=== PATIENT | male | born 1940 | race Caucasian/White ===

== ENCOUNTER 2023-08-22 23:06 | Inpatient (IN) | payer OTHER, SELFPAY ==
[2023-08-22 20:24] VITALS: BP 182/87
[2023-08-22 20:28] VITALS: BP 182/87
[2023-08-22 20:39] LABS: % Basophils 0.7 % (0-2); % Eosinophils 2.6 % (0-6); % Immature Granulocytes 0.4 % (0-0.5); % Lymphocytes 10.2 % (20.5-51.1); % Monocytes 5.9 % (1.7-9.3); % Neutrophils 80.2 % (42.2-75.2); Absolute Basophils 0.1 10^3/uL (0-0.2); Absolute Eosinophils 0.2 10^3/uL (0-0.7); Absolute Lymphocytes 0.9 10^3/uL (1.2-3.4); Absolute Monocytes 0.5 10^3/uL (0.1-0.6); Absolute Neutrophils 7.2 10^3/uL (1.4-6.5); Hematocrit 38.3 % (39.0-52.0); Hemoglobin 13.6 g/dL (13.0-18.0); Mean Corp Hgb Conc. 35.5 g/dL (33.0-37.0); Mean Corpuscular Hgb 33.1 pg (27.0-31.0); Mean Corpuscular Volume 93.2 fL (80.0-94.0); Mean Platelet Volume 10.4 fL (7.4-10.4); Nucleated Red Blood Cells % 0 % (-); Platelet Count 189 10^3/uL (130-400); Red Blood Cell Count 4.11 10^6/uL (4.70-6.10); Red Cell Dist. Width 12.9 % (11.5-14.5); White Blood Cell Count 8.9 10^3/uL (4.8-10.8)
[2023-08-22 20:51] LABS: Glucose - Point of Care 160 mg/dl (70-99)
[2023-08-22] MEDS: ZOFRAN 4 MG IV (21:00)
[2023-08-22] MEDS: NSS 1000 IV (21:01)
[2023-08-22 21:04] LABS: ALT (SGPT) 23 U/L (0-50); AST (SGOT) 28 U/L (17-59); Albumin 4.5 g/dl (3.5-5.0); Alkaline Phosphatase 129 U/L (38-126); Blood Urea Nitrogen 24 mg/dl (9-20); Calcium 9.1 mg/dl (8.4-10.2); Carbon Dioxide 26 mmol/L (22-30); Chloride 103 mmol/L (98-107); Glucose 156 mg/dl (70-99); Lipase 69 U/L (23-300); Potassium 4.2 mmol/L (3.5-5.1); Sodium 139 mmol/L (135-145); Total Bilirubin 0.5 mg/dl (0.2-1.3); Total Protein 7.4 g/dl (6.3-8.2); eGFR > 60.00
[2023-08-22 21:07] LABS: Alcohol None Detected
--- NOTE | 2023-08-22 21:09 | ED.GENMED ---
History of Present Illness
General
Chief Complaint: Change in Mental Status
Source: patient and significant other
Exam Limitations: altered mental status
Time Seen by Provider: 08/22/23 20:33
Nursing documentation reviewed up to this point in time: agreed with
History of Present Illness
History of Present Illness:
83-year-old male history of parkinsonism accompanied by his significant other apparently onset of confusion with vomiting today, was not feeling great through the day had some fried or Easter's for dinner and then vomited was in the air conditioning
all day, baseline is ambulatory no alcohol has hypertension
No trauma, patient somnolent but follows simple commands he recognizes his significant other he is globally weak moving all extremities
Past History
Past History
ED Past Medical History: CAD, HTN, Hypercholesterolemia and Other (Parkinsons)
ED Past Surgical History: Cholecystectomy
Social History
Tobacco: Non-smoker
Alcohol: None
Drug: None
Personal: Single
Living: with family
Employment: Retired
Review of Systems
Review of Systems
Unable to obtain full review of systems at this time due to: due to acuity
Other source history: other (Significant other)
All Other Systems: Not applicable
Constitutional: Reports fatigue
EENT: Reports no symptoms
Respiratory: Reports no symptoms
Cardiac: Reports no symptoms
ABD/GI: Reports nausea; Denies abdominal pain
Neurological: Reports weakness
Endocrine: Reports no symptoms
Hematologic/Lymphatic: Reports no symptoms
Phy Exam
Physical Exam
Physical Exam:
Physical Exam
General: Chronically ill-appearing male with decreased responsiveness
Neck: Lips are slightly dry no tongue
Heart: s1/s2 regular rate and rhythm, no murmur. equal radial pulses.
Lungs: no acute respiratory distress. clear bilaterally
Abdomen: Nontender
Neuro: Opens eyes to voice follows simple commands moves all extremities
Skin: no rash
Psychiatric: Affect is flat
Extremities: no edema.
Course
Orders/Labs/Results
Orders:
Orders
08/22/23 20:22
EKG [Electrocardiogram (*1)] Urgent
Reason for Study: Tachycardia
EKG- Treatment ONCE
08/22/23 20:33
Acetaminophen Urgent
Comment: ADD ON
Alcohol Urgent
Complete Blood Count/With Diff Urgent
Comprehensive Metabolic Panel Urgent
Lipase Urgent
Salicylate Urgent
Date and Time of Last Dose: ADD ON
Tegretol (Carbamazepine) Urgent
Date and Time of Last Dose: ADD ON
Comment: ADD ON
08/22/23 20:41
CT Head W/o Iv Contrast Urgent
Comment:
Reason For Exam: weakenss vomiting
Rectal Temp- Treatment ONCE
08/22/23 20:43
Add On- LAB Urgent
Tests Added?: tegretol, urine drug screen
08/22/23 20:46
Add On- LAB Urgent
Tests Added?: alcohol
08/22/23 20:57
0.9% Sodium Chloride 1000 ml [Nss] 1,000 ml IV BOLUS
Ondansetron Injectable [Zofran] 4 mg .ROUTE .STK-MED ONE
Ondansetron Injectable [Zofran] 4 mg IV NOW STA
08/22/23 21:15
Urinalysis Reflex To Culture Urgent
Date Specimen was Collected: 08/22/23
Time Specimen was Collected: 20:38
Urine Drug Abuse Screen Urgent
Date Specimen was Collected: 08/22/23
Time Specimen was Collected: 20:38
08/22/23 21:49
Add On- LAB Urgent
Tests Added?: Acetaminophen/salicylate
08/22/23 22:10
ABG [Arterial Blood Gas] Urgent
%Oxygen/Room Air: ra
CR Chest Portable - 1 View Urgent
Comment:
Reason For Exam: stupor
Reason Study Needs to be Portable: Patient Unstable
Abnormal Lab Results
08/22/23 08/22/23
20:33 20:49
RBC 4.11 L 10^6/uL
(4.70-6.10)
Hct 38.3 L %
(39.0-52.0)
MCH 33.1 H pg
(27.0-31.0)
Absolute Neuts (auto) 7.2 H 10^3/uL
(1.4-6.5)
Absolute Lymphs (auto) 0.9 L 10^3/uL
(1.2-3.4)
Neutrophils % 80.2 H %
(42.2-75.2)
Lymphocytes % 10.2 L %
(20.5-51.1)
BUN 24 H mg/dl
(9-20)
Glucose 156 H mg/dl
(70-99)
Alkaline Phosphatase 129 H U/L
(38-126)
Carbamazepine 19.1 H* ug/ml
(4-12)
POC Glucose 160 H mg/dl
(70-99)
08/22/23 20:33
08/22/23 20:33
Vital Signs
Initial and Last Documented VS:
Initial Vital Signs
Pulse Resp Pulse Ox
62 20 97
08/22/23 20:22 08/22/23 20:22 08/22/23 20:22
Last Documented Vital Signs
Temp Pulse Resp BP Pulse Ox
96.1 F L 70 15 182/87 96
08/22/23 20:41 08/22/23 20:45 08/22/23 20:45 08/22/23 20:28 08/22/23 20:30
MDM/Problems Addressed
Differential Diagnosis Includes:
Infection intracerebral hemorrhage seizure electrolyte abnormality toxic metabolic
MDM/Problems Addressed:
Confusion
Chronic conditions affecting care: HTN and Neurological disorder
Acute Exacerbation and/or Progression of Chronic Illness: Neurological disorder
*Radiology
Radiology exam reviewed: preliminary read by ED provider
*Pulse Oximetry
Patient hypoxic: no
*Cushion Spring Assembler Interpretation
Rate: normal
Interpretation: normal
Heart Rate: 78
Rhythm: sinus
*Critical Care Note
Total Time (30-74mins, 75-104mins- exclusive of procedures): 30
Update Note
Update Note:
Update, labs noted rectal temperature noted noted urine noted, CT noted full report noted Tegretol level noted
Up-to-date reviewed, general supportive care with serial Tegretol levels, benzodiazepines for seizures, suggest checking for concomitant salicylate and acetaminophen toxicity
Reevaluation patient still lethargic, but arousable maintaining his airway chest x-ray abg pending
ED Attending Note
-
Portions of this chart may have been created with voice recognition software.� Occasional wrong word or��sound alike� substitutions may have occurred due to the inherent limitations of voice recognition software.
Discharge Plan
Departure
Patient Disposition: Admit
Date of Disposition: 08/22/23
Time of Disposition: 22:15
Admit to: ICU
Presentation/result/management discussed w/ accepting MD/DO: Hospitalist
Patient with high blood pressure during this ER visit?: No
Condition: Fair
Discharge Problem:
AMS (altered mental status)
Prescriptions:
No Action
aspirin 81 MG tablet,delayed release (DR/EC)
81 mg PO NOON
metoprolol tartrate 25 MG tablet
12.5 mg PO BID
atorvastatin [Lipitor] 80 mg Tablet
40 mg PO QPM
tamsulosin [Flomax] 0.4 mg Capsule
0.4 mg PO QPM
carbidopa-levodopa 25-100 mg Tablet
1.5 tab PO TID
cyanocobalamin (vitamin B-12) 100 mcg Tablet
100 mcg PO NOON
carbamazepine 100 mg Tablet Extended Release 12 Hr
100 mg PO TID
therapeutic multivitamin Tablet
1 tab PO NOON
amlodipine 2.5 mg Tablet
2.5 mg PO QPM
omeprazole 40 mg Capsule,Delayed Release(Dr/Ec)
40 mg PO DAILY
calcium carbonate 500 mg calcium (1,250 mg) Tablet
500 mg PO NOON
ferrous sulfate 325 mg (65 mg iron) Tablet
325 mg PO NOON
lisinopril 10 mg Tablet
10 mg PO BID
levothyroxine 100 mcg Tablet
100 mcg PO DAILY
Referrals:
Tonie Evans CRNP [Family Provider] -
Interventions
Interventions:
*Risk Screen - Suicide Last Done: 08/22/23 20:21
*General Assessment Last Done: 08/22/23 20:21
*Neglect/Abuse Screening Last Done: 08/22/23 20:21
*ED COVID-19 Vaccine History Last Done: 08/22/23 20:21
ED- Neurological Assessment Last Done: 08/22/23 20:52
Discharge Date and Time
Print Language: MARSHALLESE
[2023-08-22 21:17] VITALS: BP 177/79
[2023-08-22 21:28] LABS: Urine Albumin Negative (Neg - Trace); Urine Bilirubin Negative (Negative); Urine Character Clear (Clear); Urine Color Yellow; Urine Glucose Negative (Negative); Urine Ketone Negative (Negative); Urine Leukocyte Negative (Negative); Urine Nitrite Negative (Negative); Urine Occult Blood Negative (Negative); Urine Urobilinogen Negative (Neg - 1+)
[2023-08-22 21:44] LABS: Amphetamines Negative (Negative); Barbiturates Negative (Negative); Benzodiazepines Negative (Negative); Buprenorphine Negative (Negative); Cocaine Negative (Negative); Marijuana Negative (Negative); Methadone Negative (Negative); Methamphetamines Negative (Negative); Opiates Negative (Negative); Phencyclidine Negative (Negative); Tricyclic Antidepressants Negative (Negative)
[2023-08-22 21:46] LABS: Tegretol (Carbamazepine) 19.1 ug/ml (4-12)
[2023-08-22 22:00] VITALS: BP 178/92
[2023-08-22 22:25] LABS: Acetaminophen < 10 ug/ml (10-30); Salicylate < 1.0 mg/dl (2.0-20.0)
[2023-08-22 22:46] LABS: B.E. -0.1 mmol/L; HCO3 25.4 mmol/L (21-28); O2 Saturation % 98.7 % (94-98); PCO2 44 mmHg (35-48); PO2 83 mmHg (83-108); pH 7.37 (7.35-7.45)
--- NOTE | 2023-08-22 22:48 | HPS.HSE ---
Family Physician
-
Family Physician: NEWTON Samuel
Chief Complaint
-
Confusion
History of Present Illness
83-year-old man with a history of parkinsonism who had the onset of confusion with vomiting today. He was not feeling great through the day, and had some fried food for dinner, then vomited. He was in the air conditioning all day. Hi baseline is
ambulatory. no alcohol abuse. He has essential hypertension. No report of trauma. At the time of my interview, he was somnolent, but follows simple commands and he recognizes his significant other when she was in the room. in the ED he was
globally weak, but moving all extremities. ED tox screen found high level of tegretol.
Medical History
Past Medical History
Past Medical History: Reports Other
Additional Past Medical History:
CAD,
essential HTN,
Hypercholesterolemia
Parkisons
Cholecystectomy
Former tobacco use
Status post total replacement of right hip
Benign prostatic hyperplasia without lower urinary tract symptoms
TIA (transient ischemic attack)
History of use of hearing aid in both ears
Anemia, unspecified type
History of heart artery stent
Prediabetes
Past Surgical History: Reports Other
Additional Past Surgical History:
See above
Social History
Unable to obtain full social history at this time due to: Acuity
Family History
Family History: Not pertinent
Allergies / Home Medications
Allergies reflects when Allergies were last updated in [facility].
Home Medications with original date entered in [facility]
Allergy/Medication List:
Allergies
Allergy/AdvReac Type Severity Reaction Status Date / Time
No Known Allergies Allergy Verified 08/22/23 21:20
Home Medications
aspirin 81 mg tablet,delayed release 81 mg PO NOON Blood clot prevention/tx 11/11/13
metoprolol tartrate 25 mg tablet 12.5 mg PO BID 09/12/14
carbidopa 25 mg-levodopa 100 mg tablet 1.5 tab PO TID 01/06/22
tamsulosin 0.4 mg capsule (Flomax) 0.4 mg PO QPM 01/06/22
amlodipine 2.5 mg tablet 5 mg PO QPM 11/13/22
carbamazepine 100 mg tablet,extended release,12 hr 100 mg PO TID PRN unknown 11/13/22
cyanocobalamin (vitamin B-12) 100 mcg tablet 100 mcg PO NOON 11/13/22
lisinopril 10 mg tablet 10 mg PO BID 11/13/22
omeprazole 40 mg capsule,delayed release 40 mg PO DAILY 11/13/22
therapeutic multivitamin 1 tab PO NOON 11/13/22
levothyroxine 100 mcg tablet 100 mcg PO DAILY 11/19/22
calcium carbonate-vitamin D3 500 mg (1,250 mg)-50 unit capsule 1 cap PO 1XD 08/22/23
Review of Systems
-
Unable to obtain full review of systems at this time due to: Acuity
Physical Exam
Vital Signs
Vital Signs
Temp Pulse Resp BP Pulse Ox
96.1 F L 73 11 178/92 94
08/22/23 20:41 08/22/23 22:30 08/22/23 22:30 08/22/23 22:00 08/22/23 22:30
Physical Exam
General: Well Developed, Well Nourished and No Apparent Distress
HEENT: Atraumatic, Nose Appears Normal and Ears Appear Normal
Respiratory: Clear
Cardiac: S1/S2 and Regular Rhythm
GI: Soft, Non Tender and Non Distended
Musculoskeletal: No Clubbing, No Cyanosis and No Edema
Skin: Warm and Dry
Neuro: No Awake, Alert or Oriented
Psych: Calm
Laboratory Results
-
08/22/23 20:33
08/22/23 20:33
Laboratory Results
Total Bilirubin 0.5 mg/dl (0.2-1.3) 08/22/23 20:33
AST 28 U/L (17-59) 08/22/23 20:33
ALT 23 U/L (0-50) 08/22/23 20:33
Alkaline Phosphatase 129 U/L (38-126) H 08/22/23 20:33
Lipase 69 U/L (23-300) 08/22/23 20:33
Data Reviewed
-
Lab Data: Labs Reviewed by me
Impression/Plan
-
IMPRESSION:
83 man with depressed mental status found to have high tegretol levels and high BUN/Creat ratio
PLAN:
1. Change of mental status.
First, will hold tegretol, then see how patient responds
Re-eval in am
R/O infection as a source of metabolic encephalopathy
2. Hypothermia - cause not clear, concern for infection
Blood cultures
Urine cultures/UA
3. BUN/Creat > 20.
Iv saline
Recheck in am
4. Parkinson's disease - continue current home meds
VCD for DVTp
Code: Presumed full, recheck in am with family.
[2023-08-22 23:00] VITALS: BP 156/77
[2023-08-23] VITALS (8 sets, daily range): BP systolic 139–159; BP diastolic 54–103; PULSE 82–86; BMI 26.0
[2023-08-23] MEDS: TIGAN 100 MG IM (00:40)
[2023-08-23] MEDS: NSS 1000 IV ×3 (00:41→21:07)
--- NOTE | 2023-08-23 06:04 | PTCARENOTE ---
Pt unable to urinate and states that he feels like he need to urinate. Bladder distended, bladder scanned for 616 mls. NEWTON Cisneros notified, BS/SC orders placed. Pt straight cathed w/ 15F, 750mls of clear yellow urine out. Call florez within reach
and plan of care ongoing.
[2023-08-23] MEDS: SYNTHROID 100 MCG PO (06:19)
[2023-08-23 07:07] LABS: Blood Urea Nitrogen 20 mg/dl (9-20); Calcium 8.4 mg/dl (8.4-10.2); Carbon Dioxide 25 mmol/L (22-30); Chloride 104 mmol/L (98-107); Estimated Creatinine Clearance 69 ml/min; Glucose 111 mg/dl (70-99); Potassium 3.9 mmol/L (3.5-5.1); Sodium 136 mmol/L (135-145); eGFR > 60.00
[2023-08-23 07:11] LABS: Hematocrit 33.3 % (39.0-52.0); Hemoglobin 12.2 g/dL (13.0-18.0); Mean Corp Hgb Conc. 36.6 g/dL (33.0-37.0); Mean Corpuscular Hgb 33.9 pg (27.0-31.0); Mean Corpuscular Volume 92.5 fL (80.0-94.0); Mean Platelet Volume 10.6 fL (7.4-10.4); Platelet Count 187 10^3/uL (130-400); Red Cell Dist. Width 12.7 % (11.5-14.5); White Blood Cell Count 8.2 10^3/uL (4.8-10.8)
[2023-08-23 07:35] LABS: TSH 0.42 uIU/ml (0.47-4.68)
[2023-08-23] MEDS: PROTONIX 40 MG PO (08:31)
[2023-08-23] MEDS: SINEMET 25-100 1.5 TABLET PO ×3 (08:31→21:03)
[2023-08-23] MEDS: OSCAL 500 + D 500 MG PO (08:32)
[2023-08-23 08:33] LABS: COVID-19 Antigen Negative (Negative)
[2023-08-23] MEDS: ZESTRIL 10 MG PO ×2 (08:33→20:15)
[2023-08-23] MEDS: LOPRESSOR 12.5 MG PO ×2 (08:33→20:16)
[2023-08-23] MEDS: VITAMIN B-12 100 MCG PO (11:16)
[2023-08-23] MEDS: ASPIR LOW (ENTERIC COATED) 81 MG PO (11:16)
[2023-08-23] MEDS: THERAGRAN 1 TABLET PO (11:16)
--- NOTE | 2023-08-23 12:09 | CON.NEURO4 ---
Consultation - Neurology 4
-
CONSULTING PHYSICIAN: Josue Albright
REFERRING PHYSICIAN: Hospitalist
DICTATED BY: Josue Albright
DATE/TIME OF REQUEST: 08/23/23
DATE/TIME OF CONSULTATION: 08/23/23
Reason for Consultation: Slurred speech, drowsiness,
History of Present Illness:
Patient is an 83-year-old male with a past no history of Parkinson's disease, trigeminal neuralgia, hypertension, coronary artery disease presented to hospital after noted to have balance problems as well as slurred speech and drowsiness observed by
his .
No recent illnesses or head injuries recently. He had had some fried or esters that his had COVID but did not tolerate these well and had some vomiting afterwards.
Per patient and he does appear improved compared to yesterday. Patient denies any double vision or vision changes with the episode yesterday or currently. No headache. No recent changes in medication carbidopa/levodopa. Patient reports that
he usually takes the carbamazepine usually once a day and sometimes on an as-needed basis. He demonstrates poor memory recall for most of the events yesterday.
Per patient's he has been on carbamazepine 200 mg as needed at least for several months for history of right-sided trigeminal neuralgia. Patient reports that he will get some sharp short lasting stabbing pains on the right side of the lower
face that usually can be provoked by eating. These have not been bothersome or severe in the past several months but occasionally can tell that there is a bit of a sensation there in the right lower part of the face.
Past Medical History: Idiopathic Parkinson's disease, trigeminal neuralgia hypertension, hyperlipidemia, coronary artery disease, BPH, anemia, prediabetes
Surgical History: Coronary stent, cholecystectomy, right hip replaced
Family History: Non-contributory
Social History: Retired diesel lube tech, and lives with his
Review of Symptoms:
Patient denies any fever, headache, chest pain, shortness of breath, GI or symptoms.
Physical Exam:
Elderly man well-appearing well-nourished no signs of distress no head or neck trauma eyes are clear oropharynx is clear no neck masses mildly rigid neck, heart rate regular breathing unlabored abdomen soft nontender no lower extremity edema
Neurologic Examination:
Patient awake and alert and conversant obeys complex commands no evidence of aphasia. Evidence of significant memory impairment is apparent.
Cranial nerves shows mild dysarthria, smile symmetric, tongue midline, pupils equal round reactive light bilaterally, no ptosis, visual alonzo are full, extraocular movements are full
Motor examination shows mild resting tremor bilaterally in the hands, moderate overall parkinsonism, mild rigidity in the arms bilaterally as well as leg
Sensory exam intact to light touch and noxious stimulation to
Reflexes unobtainable throughout
Normal finger-nose testing bilaterally no ataxia
Gait examination deferred
Neuro Imaging: CT head non contrast no acute abnormalities
Impressions
1. Very likely symptoms are attributable to elevated levels of carbamazepine in a patient with pre-existing Parkinson's disease as well has mild cognitive impairment. Patient says he takes this medication sometimes once a day but I have some
doubts as to the accuracy of this and how much she is truly taking the medication given his significant memory impairment
2. History of right-sided trigeminal neuralgia
3. History idiopathic Parkinson's disease on carbidopa/levodopa, possibly associated with orthostasis
4. Memory impairment from Parkinson's disease, at least mild cognitive impairment is present
5. Coronary artery disease
6. Hypertension
7. BPH
Recommendations:
1. Would hold carbamazepine completely for now, would recommend holding for at least 7 days with resumption of dose at 100 mg at night only
2. Would recommend checking a carbamazepine level 1 week after discharge and sending result to his existing neurologist as well as primary care doctor
3. Minimize sedating medications
4. Check orthostatic vital signs
5. Physical therapy occupational therapy mobilization
6. Given finding of significantly elevated carbamazepine level along with the patient's symptoms which are consistent with mild toxicity from the medication I feel it isvery unlikely patient has suffered a stroke and do not recommend brain MRI
imaging
7. Continue home dose Carbidopa/Levodopa
8. Avoid antipsychotics especially Haloperidol as this can produce harm in patients with Parkinson's disease
Discussed patient care with: Patient and his , hospitalist
--- NOTE | 2023-08-23 12:13 | W.PN.HOSP.TC ---
Addendum entered and electronically signed by Renard Perez MD 08/23/23 14:13:
I just spoke to patient Patience and she is concerned about patient's high blood pressure (systolic 140s vs. his normal 110s to 120s). She mentioned cyber security administrator Dr. Hauser usually manages his blood pressure medications. Per 's request, we
agreed to keep patient here overnight and continue monitoring his blood pressure to ensure it comes at least closer to normal prior to discharge.
Original Note:
Today's Communication/Plan
-
Hold Tegretol
Symptoms Improving
PT/OT
Assessment / Plan
Assessment / Plan
Physical Exam
General: Not in acute distress
HEENT: Atraumatic
Respiratory: Clear
Cardiac: S1/S2 and Regular Rhythm
GI: Soft, Non Tender and Non Distended. Positive bowel sounds.
Musculoskeletal: No Cyanosis and No Edema
Skin: Warm and Dry
Neuro: Mild dysarthria. Mild resting tremor. Memory Impairment. neuro exam otherwise grossly intact.
Psych: Calm

83 y/o male with depressed mental status, recent history of slurred speech, and gait imbalance. Vomiting after eating fried food at home.
Presentation with balance problems as well as recent slurred speech and drowsiness, and vomiting after eating fried food
Acute Toxic Metabolic Encephalopathy - IMPROVED
-First, will hold tegretol, then see how patient responds
-Continue to hold carbamazepine; carbamazepine levels are also high
-Patient is doing better
-Neurology consulted, recommendations appreciated: hold carbamazepine completely for now, would recommend holding for at least 7 days with resumption of dose at 100 mg at night only, check a carbamazepine level 1 week after discharge and sending
result to his existing neurologist as well as primary care doctor
-Minimize sedating medications
-No concern for infection at this time but ordered COVID and Flu to be thorough
Hypothermia - RESOLVED - cause not clear, infection unlikely at this time
-Blood cultures
-UA not suggesting UTI
Prerenal Azotemia/Suspected Dehydration especially in the setting of vomiting
-IV fluids were given
-Labs improved
Parkinson's disease
-Continue carbidopa/levodopa
-Avoid antipsychotics especially Haloperidol as this can produce harm in patients with Parkinson's disease
Mild Cognitive Impairment
Right-sided trigeminal neuralgia
-Patient has been on carbamazepine 200 mg as needed at least for several months
-Hold carbamazepine as above; carbamazepine levels are also high
Hypertension
-Continue Amlodipine and Lisinopril
Hyperlipidemia
Coronary artery disease status post stent
-Continue home Aspirin
BPH
-Continue Flomax
Normocytic Anemia
-Monitor CBC
Prediabetes
VCD for DVTp
Code: Full Code
Anticipated Discharge: 24 - 48 hours
Subjective/Interval History
-
Date of Service: August 23, 2023
Patient was seen and examined. He reports feeling better than when he came in. He denied any new symptoms or complaints.
Objective Data
-
Labs:
Laboratory Results
08/23/23
06:24
WBC 8.2
Hgb 12.2 L
Hct 33.3 L
Plt Count 187
Sodium 136
Potassium 3.9
Chloride 104
Carbon Dioxide 25
BUN 20
Creatinine 0.8
Glucose 111 H
Calcium 8.4
Vital Signs:
Vital Signs
Temp Pulse Resp BP Pulse Ox
98.2 F 82 18 141/86 97
08/23/23 11:00 08/23/23 11:00 08/23/23 11:00 08/23/23 11:00 08/23/23 11:00
I&O
08/22/23 08/23/23 08/24/23
06:59 06:59 06:59
Intake Total 240 / 240
Output Total 1500 / 1500
Balance -1260 / -1260
--- NOTE | 2023-08-23 13:59 | CM ---
Addendum entered by Gin Butler 08/23/23 14:29:
per Attending, he spoke with patient's ; plans to discharge tomorrow
Original Note:
Initial assessment completed with via phone with patient's permission
reported that she and her live in a multilevel home; 6 steps to enter; use stair glide to the 2nd floor bathroom to bathe in stall shower; powder room on the 1st floor; patient's bedroom is on the 1st floor
PLOF: per spouse patient is independent with personal care; ambulates independently; needs reminders to eat, drink and take his medication; does not drive
SNF/Home Health utilization Hx: 2021 SNF stay @ [facility] and [facility]; home health services in the past but could not remember agency
Transportation: will provide ride home
has concerns about 's diastolic BP and not ready for discharge today; sent tiger text to Attending and requested he give a call
Plan: discharge to home when medically stable with home health services from [facility]; referral sent via [facility] for PT and Speech therapy
--- NOTE | 2023-08-23 14:16 | PTOTSP ---
Acute Care Evaluation
Pt currently presents with a moderate cognitive linguistic impairment characterized by deficits in orientation, expressive language generation, mental organization/manipulation, and auditory recall. Pt would benefit from continued HUMAN RESOURCES TRAINER services upon
discharge for these aforementioned deficits.
Pt also currently presents with mild oropharyngeal dysphagia characterized by impulsivity with bite/sip size resulting in prolonged mastication and bolus formation, need for liquid wash to help with bolus formation and bolus clearance, as well as
occasional intermittent throat clearing with ingestion of liquids.
Recommendations:
- Continue with regular solids, thin liquids, meds as tolerated.
- Encourage aspiration precautions: HOB fully upright during PO intake, SINGLE SIPS ONLY, small bites, alternate bites/sips.
- Pt would benefit from HUMAN RESOURCES TRAINER services upon d/c for cognitive linguistic tx and dysphagia tx.
- Pt would also benefit from a VFSS, given his overt s/s at bedside and dx of Parkinson's disease, though it is not urgent at this time and can be completed as an OP.
- HUMAN RESOURCES TRAINER will continue to follow pt while he is admitted for cognitive linguistic and dysphagia tx.
[2023-08-23] MEDS: NORVASC 5 MG PO (17:20)
[2023-08-23] MEDS: FLOMAX 0.400000000000000022 MG PO (17:20)
[2023-08-24 03:10] VITALS: BP 157/87
[2023-08-24] MEDS: SYNTHROID 100 MCG PO (06:04)
[2023-08-24 06:06] LABS: % Basophils 0.6 % (0-2); % Eosinophils 4.8 % (0-6); % Immature Granulocytes 0.4 % (0-0.5); % Lymphocytes 15.9 % (20.5-51.1); % Monocytes 8.3 % (1.7-9.3); Absolute Eosinophils 0.3 10^3/uL (0-0.7); Absolute Lymphocytes 1.1 10^3/uL (1.2-3.4); Absolute Monocytes 0.6 10^3/uL (0.1-0.6); Absolute Neutrophils 4.8 10^3/uL (1.4-6.5); Hematocrit 34.3 % (39.0-52.0); Hemoglobin 11.9 g/dL (13.0-18.0); Mean Corp Hgb Conc. 34.7 g/dL (33.0-37.0); Mean Corpuscular Hgb 32.9 pg (27.0-31.0); Mean Corpuscular Volume 94.8 fL (80.0-94.0); Mean Platelet Volume 10.5 fL (7.4-10.4); Nucleated Red Blood Cells % 0 % (-); Platelet Count 184 10^3/uL (130-400); Red Blood Cell Count 3.62 10^6/uL (4.70-6.10); White Blood Cell Count 6.8 10^3/uL (4.8-10.8)
[2023-08-24 06:24] LABS: Blood Urea Nitrogen 16 mg/dl (9-20); Calcium 8.8 mg/dl (8.4-10.2); Carbon Dioxide 26 mmol/L (22-30); Chloride 109 mmol/L (98-107); Estimated Creatinine Clearance 61 ml/min; Glucose 84 mg/dl (70-99); Potassium 4.4 mmol/L (3.5-5.1); Sodium 139 mmol/L (135-145); eGFR > 60.00
[2023-08-24 07:00] VITALS: BP 152/89
[2023-08-24] MEDS: NSS IV (08:39)
[2023-08-24] MEDS: SINEMET 25-100 1.5 TABLET PO (08:41)
[2023-08-24] MEDS: LOPRESSOR 12.5 MG PO (08:41)
[2023-08-24] MEDS: ZESTRIL 10 MG PO (08:41)
[2023-08-24] MEDS: PROTONIX 40 MG PO (08:41)
[2023-08-24] MEDS: OSCAL 500 + D 500 MG PO (08:41)
[2023-08-24 09:02] VITALS: BP 163/97
[2023-08-24 11:00] VITALS: BP 163/92
[2023-08-24] MEDS: VITAMIN B-12 100 MCG PO (11:19)
[2023-08-24] MEDS: THERAGRAN 1 TABLET PO (11:19)
[2023-08-24] MEDS: ASPIR LOW (ENTERIC COATED) 81 MG PO (11:19)
--- NOTE | 2023-08-24 13:27 | W.PN.HOSP.TC ---
Today's Communication/Plan
-
Discharge
Assessment / Plan
Assessment / Plan
Gen-AAOx3, NAD
HEENT-NC, AT, anicteric, clear oral mm
Neck-supple
CV-reg, no M, +S1/S2
Lungs-clear B/L
Abd-soft, NT, ND
Ext-no edema
Musculoskeletal-no cyanosis, clubbing
Skin-warm and dry
Neuro-grossly non-focal
Psych-calm, cooperative
Acute TME -due to carbamazepine toxicity. TME resolved.
-Neurology consulted, recommendations appreciated: hold carbamazepine completely for now, would recommend holding for at least 7 days with resumption of dose at 100 mg at night only, check a carbamazepine level 1 week after discharge and sending
result to his existing neurologist as well as primary care doctor
-Minimize sedating medications
Hypothermia - RESOLVED - cause not clear, infection unlikely at this time
Prerenal Azotemia/Suspected Dehydration especially in the setting of vomiting
-IV fluids were given
-Labs improved
Parkinson's disease
-Continue carbidopa/levodopa
-Avoid antipsychotics especially Haloperidol as this can produce harm in patients with Parkinson's disease
Mild Cognitive Impairment
Right-sided trigeminal neuralgia
-Patient has been on carbamazepine 200 mg as needed at least for several months
-Hold carbamazepine as above; carbamazepine levels are also high
Essential hypertension -Continue Amlodipine and Lisinopril. concerned about elevated blood pressures but I explained to her that readings in the hospital are unreliable. Recommend outpatient follow-up. She does not want me to make any
changes.
Hyperlipidemia
Coronary artery disease status post stent-Continue home Aspirin
BPH -Continue Flomax
Normocytic Anemia-Monitor CBC
Prediabetes
VCD for DVTp
Code: Full Code
Dispo -medically stable for discharge. Updated on the phone. Outpatient follow-up.
34 minutes spent in discharge process.
Anticipated Discharge: Today
Subjective/Interval History
-
Date of Service: August 24, 2023
Patient seen and examined. No complaints.
Objective Data
-
Labs:
Laboratory Results
08/24/23
05:28
WBC 6.8
Hgb 11.9 L
Hct 34.3 L
Plt Count 184
Sodium 139
Potassium 4.4
Chloride 109 H
Carbon Dioxide 26
BUN 16
Creatinine 0.9
Glucose 84
Calcium 8.8
Vital Signs:
Vital Signs
Temp Pulse Resp BP Pulse Ox
97.9 F 70 16 163/92 98
08/24/23 11:00 08/24/23 11:00 08/24/23 11:00 08/24/23 11:00 08/24/23 11:00
I&O
08/23/23 08/24/23 08/25/23
06:59 06:59 06:59
Intake Total 240 / 240 2880 / 2880
Output Total 1500 / 1500 2145 / 2145
Balance -1260 / -1260 735 / 735
Review of Systems
-
History Source: Patient
All other systems: Reviewed and negative
--- NOTE | 2023-08-24 13:36 | W.DS.TRANS ---
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
-
Discharge Instructions:
Discharge Diagnosis/Procedures Carbamazepine toxicity
Diet Low Cholesterol,Low Fat,2 Gram Sodium
Activity As tolerated
Driving Restrictions As prior to admission
Bathing Restrictions None
Blood Work Carbamazepine level in 1 week
Instructions:
Stand-Alone Forms:
Changes to Home Medications: Yes
Discharge Medications:
DC Medications w/original date entered in [employer]
aspirin 81 mg tablet,delayed release 81 mg PO NOON Blood clot prevention/tx 11/11/13
metoprolol tartrate 25 mg tablet 12.5 mg PO BID 11/11/13
carbidopa 25 mg-levodopa 100 mg tablet 1.5 tab PO TID 01/06/22
tamsulosin 0.4 mg capsule (Flomax) 0.4 mg PO QPM 01/06/22
amlodipine 2.5 mg tablet 5 mg PO QPM 11/13/22
cyanocobalamin (vitamin B-12) 100 mcg tablet 100 mcg PO NOON 11/13/22
lisinopril 10 mg tablet 10 mg PO BID 11/13/22
omeprazole 40 mg capsule,delayed release 40 mg PO DAILY 11/13/22
therapeutic multivitamin 1 tab PO NOON 11/13/22
levothyroxine 100 mcg tablet 100 mcg PO DAILY 11/19/22
calcium carbonate-vitamin D3 500 mg (1,250 mg)-50 unit capsule 1 cap PO 1XD 08/22/23
Home Medication Changes
Stop carbamazepine, until you speak with your doctor
Pending Results: No
[2023-08-24 15:00] VITALS: BP 165/90
--- NOTE | 2023-08-24 15:48 | CM ---
MD entered order for discharge.
Spoke with Patience she said [facility]
IMM signed on chart by .
PLAN Home with [facility]
--- NOTE | 2023-08-25 15:23 | VNURNOTE ---
Home Health Liaison spoke with patient's Patience 08/23 late afternoon to discuss [facility] nurse/therapy, visits, schedule and homebound status. Patience is unsure about [facility] at this time. Patience understands that visits at home will be 2-3 x per week to
assess and teach medical management, but Liaison needs to confirm patient participation in '[employer]' class is acceptable w/homebound status.
[facility]2 days after discharge from .
[facility] referral completed in [facility] after confirmation with Marimar Delarosa that class is private pay.
Message left for Patience 08/24 am with contact information.
VN updated.
== END 2023-08-24 15:30 | disposition home health service (06) | DRG 93 ==
LOC: 3 WEST ACU 23:06
PROVIDERS: Hospitalist; ADMITTING PHYSICIAN Internal Medicine; ATTENDING PHYSICIAN Hospitalist; CONSULT PHYSICIAN Student in an Organized Health Care Education/Training Program; EMERGENCY PHYSICIAN Emergency Medicine; FAMILY PHYSICIAN Nurse Practitioner Family
DX: G92.8 Other toxic encephalopathy (principal); T42.1X5A Adverse effect of iminostilbenes, initial encounter; Y92.9 Unspecified place or not applicable; I25.10 Atherosclerotic heart disease of native coronary artery without angina pectoris; I10 Essential (primary) hypertension; E78.00 Pure hypercholesterolemia, unspecified; G20.A1 Parkinson's disease without dyskinesia, without mention of fluctuations; R73.03 Prediabetes; N40.0 Benign prostatic hyperplasia without lower urinary tract symptoms; G50.0 Trigeminal neuralgia; G31.84 Mild cognitive impairment of uncertain or unknown etiology; R68.0 Hypothermia, not associated with low environmental temperature; D64.9 Anemia, unspecified; Z96.641 Presence of right artificial hip joint; Z90.49 Acquired absence of other specified parts of digestive tract; Z86.73 Personal history of transient ischemic attack (TIA), and cerebral infarction without residual deficits; Z79.82 Long term (current) use of aspirin; Z79.890 Hormone replacement therapy; Z87.891 Personal history of nicotine dependence; Z11.52 Encounter for screening for COVID-19
CPT/HCPCS: 70450; 71045; 80048; 80053; 80143; 80156; 80179; 80306; 81003; 82077; 82805; 82962; 83690; 84443; 85025; 85027; 87040; 87502; 87811; 92523; 92610; 93005; 96361; 96374; 97161; 97166; 99291

== ENCOUNTER → 2023-09-11 12:24 | Outpatient (REF) | payer OTHER, SELFPAY | LOC: RAD 12:24 | PROVIDERS: ATTENDING PHYSICIAN Nurse Practitioner Family | DX: R10.9 Unspecified abdominal pain (principal) | CPT/HCPCS: 74019 ==

== ENCOUNTER 2023-10-14 12:15 | Emergency (ER) | payer OTHER, SELFPAY ==
[2023-10-14] VITALS (9 sets, daily range): BP systolic 128–160; BP diastolic 73–89; PULSE 71–85; BMI 25.8
[2023-10-14 12:49] LABS: % Basophils 0.7 % (0-2); % Eosinophils 5.6 % (0-6); % Immature Granulocytes 0.2 % (0-0.5); % Lymphocytes 10.6 % (20.5-51.1); % Monocytes 9.1 % (1.7-9.3); % Neutrophils 73.8 % (42.2-75.2); Absolute Basophils 0.1 10^3/uL (0-0.2); Absolute Eosinophils 0.5 10^3/uL (0-0.7); Absolute Lymphocytes 0.9 10^3/uL (1.2-3.4); Absolute Monocytes 0.8 10^3/uL (0.1-0.6); Absolute Neutrophils 6.2 10^3/uL (1.4-6.5); Hematocrit 36.5 % (39.0-52.0); Hemoglobin 12.5 g/dL (13.0-18.0); Mean Corp Hgb Conc. 34.2 g/dL (33.0-37.0); Mean Corpuscular Hgb 32.8 pg (27.0-31.0); Mean Corpuscular Volume 95.8 fL (80.0-94.0); Mean Platelet Volume 9.9 fL (7.4-10.4); Nucleated Red Blood Cells % 0 % (-); Platelet Count 246 10^3/uL (130-400); Red Blood Cell Count 3.81 10^6/uL (4.70-6.10); Red Cell Dist. Width 12.6 % (11.5-14.5); White Blood Cell Count 8.4 10^3/uL (4.8-10.8)
[2023-10-14 13:08] LABS: ALT (SGPT) < 10 U/L (0-50); AST (SGOT) 21 U/L (17-59); Albumin 3.7 g/dl (3.5-5.0); Alkaline Phosphatase 106 U/L (38-126); Blood Urea Nitrogen 21 mg/dl (9-20); Calcium 9.4 mg/dl (8.4-10.2); Carbon Dioxide 29 mmol/L (22-30); Chloride 103 mmol/L (98-107); Glucose 140 mg/dl (70-99); Potassium 4.3 mmol/L (3.5-5.1); Sodium 138 mmol/L (135-145); Total Bilirubin 0.3 mg/dl (0.2-1.3); Total Protein 6.2 g/dl (6.3-8.2); eGFR > 60.00
--- NOTE | 2023-10-14 14:07 | ED.MUSCINJ ---
HPI-Injury
<TONYA Overton Last Filed: 10/14/23 16:07>
General
Chief Complaint: Fall
Source: patient
Exam Limitations: none
Time Seen by Provider: 10/14/23 13:52
History of Present Illness-Injury
Initial Injury comments:
83-year-old male on a baby aspirin presents after a fall. He stood up to go to the bathroom and felt lightheaded and fell over. He hit the top of his head. His states he passes out frequently. This is not new. He denies significant
headache or neck pain. They noted a laceration to the superior scalp. No other complaints at this time. No preceding chest pain or palpitation
Past History
<TONYA Overton Last Filed: 10/14/23 16:07>
Past History
ED Past Medical History: CAD, HTN, Hypercholesterolemia and Other (Parkinsons)
ED Past Surgical History: Cholecystectomy
Social History
Tobacco: Non-smoker
Alcohol: None
Drug: None
Personal: Single
Living: with family
Employment: Retired
Phy Exam
<TONYA Overton Last Filed: 10/14/23 16:07>
Physical Exam
Physical Exam:
General: Well-appearing male no acute respiratory distress
HEENT: Normocephalic 4 cm flap type laceration superior scalp pupils equal round reactive to light TMs normal
Musculoskeletal exam: The spine is nontender to palpation
Heart: Regular rate and rhythm no murmurs
Lungs: Clear no wheeze
Neurologic: Alert and oriented no facial asymmetry no unilateral weakness
Injury Course
<TONYA Overton Last Filed: 10/14/23 16:07>
Orders/Labs/Results
Orders:
Orders
10/14/23 12:38
CMP [Comprehensive Metabolic Panel] Stat
Complete Blood Count/With Diff Urgent
10/14/23 13:58
CT Head W/o Iv Contrast Urgent
Comment:
Reason For Exam: fall, laceration
10/14/23 14:09
Electrocardiogram (*1) Urgent
Reason for Study: Syncope
EKG- Treatment ONCE
10/14/23 15:05
Troponin I Urgent
Abnormal Lab Results
10/14/23
12:38
RBC 3.81 L 10^6/uL
(4.70-6.10)
Hgb 12.5 L g/dL
(13.0-18.0)
Hct 36.5 L %
(39.0-52.0)
MCV 95.8 H fL
(80.0-94.0)
MCH 32.8 H pg
(27.0-31.0)
Absolute Lymphs (auto) 0.9 L 10^3/uL
(1.2-3.4)
Absolute Monos (auto) 0.8 H 10^3/uL
(0.1-0.6)
Lymphocytes % 10.6 L %
(20.5-51.1)
BUN 21 H mg/dl
(9-20)
Glucose 140 H mg/dl
(70-99)
Total Protein 6.2 L g/dl
(6.3-8.2)
10/14/23 12:38
10/14/23 12:38
Roslynlt;Neil Hu MD - Last Filed: 10/14/23 14:52>
Orders/Labs/Results
Orders:
Orders
10/14/23 12:38
CMP [Comprehensive Metabolic Panel] Stat
Complete Blood Count/With Diff Urgent
10/14/23 13:58
CT Head W/o Iv Contrast Urgent
Comment:
Reason For Exam: fall, laceration
10/14/23 14:09
Electrocardiogram (*1) Urgent
Reason for Study: Syncope
EKG- Treatment ONCE
10/14/23 15:05
Troponin I Urgent
Abnormal Lab Results
10/14/23
12:38
RBC 3.81 L 10^6/uL
(4.70-6.10)
Hgb 12.5 L g/dL
(13.0-18.0)
Hct 36.5 L %
(39.0-52.0)
MCV 95.8 H fL
(80.0-94.0)
MCH 32.8 H pg
(27.0-31.0)
Absolute Lymphs (auto) 0.9 L 10^3/uL
(1.2-3.4)
Absolute Monos (auto) 0.8 H 10^3/uL
(0.1-0.6)
Lymphocytes % 10.6 L %
(20.5-51.1)
BUN 21 H mg/dl
(9-20)
Glucose 140 H mg/dl
(70-99)
Total Protein 6.2 L g/dl
(6.3-8.2)
10/14/23 12:38
10/14/23 12:38
<Jose Raul Arambula PA-C - Last Filed: 10/14/23 16:07>
MDM/Problems Addressed
Differential Diagnosis Includes:
Fall with head strike question possible near syncope. Near syncope is not new. Labs reviewed through triage without significant finding. CT of the head ordered.
EKG ordered
<Jose Raul Arambula PA-C - Last Filed: 10/14/23 16:07>
*Critical Care Note
Total Time (30-74mins, 75-104mins- exclusive of procedures): Not Applicable
<Jose Raul Arambula PA-C - Last Filed: 10/14/23 16:07>
Update Note
Update Note:
CT head negative. EKG shows new T wave inversions anteriorly. Discussed with emergency room attending as well as cardiology. Troponin was then ordered which was negative. No indication for any admission per cardiology based on EKG and story.
Patient has a history of syncope. He stood up today and got lightheaded question possible orthostasis. The wound was copiously irrigated with saline solution anesthetized with 1% lidocaine with epinephrine and closed with 7 skin fazal. Patient
tolerated this well. Stable for discharge
ED Attending Note
<Jose Raul Arambula PA-C - Last Filed: 10/14/23 16:07>
-
Portions of this chart may have been created with voice recognition software.� Occasional wrong word or��sound alike� substitutions may have occurred due to the inherent limitations of voice recognition software.
<Neil Hu MD - Last Filed: 10/14/23 14:52>
ED Attending Note
Patient seen and examined by attending physician: Yes
I performed the substantive portion of visit, reviewed & personally made and approve the management plan that is documented in note by myself or DEON.: Yes
ED Attending Note:
83-year-old male with history of hypertension, prior [place] presenting to the emergency department after a fall. Patient states that he became lightheaded dizzy and then passed out. He did hit the top of his head. Patient's does state that he
has passed out a few times. They usually have a prodrome. 2 years ago he did have an episode of syncope without any prodrome. Per chart review patient did have a nuclear stress test done in March that did show a reversible defect as well as
some infarction. He does not have any stents. He does not have any chest pain or palpitations. At this time he is asymptomatic. Vitals are reassuring exam does show a superficial laceration to the scalp. Heart is regular rate and rhythm with
good distal pulses. EKG per my interpretation with new anterior lateral T wave inversions. Will check blood work including troponin. Will discuss with cardiology given the new EKG changes. The syncope today did have a prodrome however with the
EKG changes he would benefit from a cardiology discussion. Dispo pending blood work
Discharge Plan
Departure
Patient Disposition: Home (Routine Discharge)
Date of Disposition: 10/14/23
Time of Disposition: 16:06
Patient with high blood pressure during this ER visit?: No
Discharge Problem:
Laceration
Instructions: Laceration Repair With Fazal (DC)
Prescriptions:
No Action
aspirin 81 MG tablet,delayed release (DR/EC)
81 mg PO NOON
metoprolol tartrate 25 MG tablet
12.5 mg PO BID
tamsulosin [Flomax] 0.4 mg Capsule
0.4 mg PO QPM
carbidopa-levodopa 25-100 mg Tablet
1.5 tab PO TID
cyanocobalamin (vitamin B-12) 100 mcg Tablet
100 mcg PO NOON
therapeutic multivitamin Tablet
1 tab PO NOON
amlodipine 2.5 mg Tablet
5 mg PO QPM
omeprazole 40 mg Capsule,Delayed Release(Dr/Ec)
40 mg PO DAILY
lisinopril 10 mg Tablet
10 mg PO BID
levothyroxine 100 mcg Tablet
100 mcg PO DAILY
calcium carbonate-vitamin D3 500 mg(1,250mg) -50 unit Capsule
1 cap PO 1XD
Referrals:
Aj Cox MD [Family Provider] -
Activity Restrictions/Additional Instructions:
Have fazal removed in 7 to 10 days. You may take Tylenol for pain if needed. Follow-up with your family doctor and cardiology
Interventions
Interventions:
*Risk Screen - Suicide Last Done: 10/14/23 12:16
*General Assessment Last Done: 10/14/23 12:16
*Neglect/Abuse Screening Last Done: 10/14/23 12:16
*ED COVID-19 Vaccine History Last Done: 10/14/23 12:16
ED-Musculoskeletal Assessment Last Done: 10/14/23 14:10
ED- Neurological Assessment Last Done: 10/14/23 14:10
ED-Skin Assessment Last Done: 10/14/23 14:26
Discharge Date and Time
Print Language: LATVIAN
--- NOTE | 2023-10-14 15:08 | EDRN ---
Ordered troponin drawn and sent. Yann FITZGERALD in room w/ pt at this time.
[2023-10-14 15:34] LABS: Troponin I < 0.012 ng/ml
--- NOTE | 2023-10-14 15:34 | EDRN ---
Pt's spouse just left to care for dog and will return.
--- NOTE | 2023-10-14 16:39 | EDRN ---
This RN called pt's friend for a ride home at this time w/ cell # as she requested w/ message left for Patience.
== END 2023-10-14 17:24 | disposition home or self-care (01) ==
LOC: EMR 12:15
PROVIDERS: Emergency Medicine; Physician Assistant; EMERGENCY PHYSICIAN Student in an Organized Health Care Education/Training Program; FAMILY PHYSICIAN Family Medicine
DX: S01.01XA Laceration without foreign body of scalp, initial encounter (principal); W19.XXXA Unspecified fall, initial encounter; I25.10 Atherosclerotic heart disease of native coronary artery without angina pectoris; I10 Essential (primary) hypertension; E78.00 Pure hypercholesterolemia, unspecified; G20.A1 Parkinson's disease without dyskinesia, without mention of fluctuations; Z90.49 Acquired absence of other specified parts of digestive tract
CPT/HCPCS: 99284; 12002; 70450; 80053; 84484; 85025; 93005

== ENCOUNTER → 2023-12-17 14:56 | Outpatient (REF) | payer OTHER, SELFPAY | LOC: RCS 14:56 | PROVIDERS: ATTENDING PHYSICIAN Nuclear Medicine Nuclear Cardiology; FAMILY PHYSICIAN Nurse Practitioner Family | DX: I42.9 Cardiomyopathy, unspecified (principal) | CPT/HCPCS: 93306 ==

== ENCOUNTER 2024-07-28 11:48 | Emergency (ER) | payer OTHER, SELFPAY ==
[2024-07-28] VITALS (7 sets, daily range): BP systolic 120–146; BP diastolic 64–77; PULSE 65–75
[2024-07-28] MEDS: NSS 500 IV (12:04)
[2024-07-28 12:15] LABS: % Basophils 0.6 % (0-2); % Eosinophils 4.6 % (0-6); % Immature Granulocytes 0.4 % (0-0.5); % Lymphocytes 11.2 % (20.5-51.1); % Monocytes 7.9 % (1.7-9.3); % Neutrophils 75.3 % (42.2-75.2); Absolute Basophils 0.1 10^3/uL (0-0.2); Absolute Eosinophils 0.5 10^3/uL (0-0.7); Absolute Lymphocytes 1.2 10^3/uL (1.2-3.4); Absolute Monocytes 0.8 10^3/uL (0.1-0.6); Absolute Neutrophils 7.9 10^3/uL (1.4-6.5); Hematocrit 38.2 % (39.0-52.0); Hemoglobin 12.8 g/dL (13.0-18.0); Mean Corp Hgb Conc. 33.5 g/dL (33.0-37.0); Mean Corpuscular Hgb 32.4 pg (27.0-31.0); Mean Corpuscular Volume 96.7 fL (80.0-94.0); Mean Platelet Volume 10.9 fL (7.4-10.4); Nucleated Red Blood Cells % 0 % (-); Platelet Count 195 10^3/uL (130-400); Red Blood Cell Count 3.95 10^6/uL (4.70-6.10); Red Cell Dist. Width 13.3 % (11.5-14.5); White Blood Cell Count 10.5 10^3/uL (4.8-10.8)
--- NOTE | 2024-07-28 12:21 | ED.GENMED ---
History of Present Illness
General
Chief Complaint: Dizziness
Source: patient
Exam Limitations: none
Time Seen by Provider: 07/28/24 11:59
Nursing documentation reviewed up to this point in time: agreed with
History of Present Illness
History of Present Illness:
84-year-old male with a history of Parkinson's disease, CAD, hypertension, hypothyroidism who presents after syncopal event followed by a near syncopal event within a few minutes of each other earlier today. Patient was feeling well when he woke
up. He ate breakfast. Few hours later he went to a kickboxing class that he normally attends at [employer]. Patient says he started to feel lightheaded which is something that is happened to him before before he is going to pass out. Patient sat
himself down but ultimately did have a loss of consciousness. His was just outside the room and was called in where she tried to stir him awake. He did wake up and was responding to her briefly but then by the time the paramedics got there
and they were about to do the twelve-lead the patient nearly passed out again. Again he was seated and did not fall to the ground. He bradycardia down into the 30s and his blood pressure was in the low 100s. Patient now feel like he is back to
himself.
He has not had a headache, chest pain, shortness of breath, abdominal pain, diarrhea, dehydration though he says he has been told in the past when this happens that he could be dehydrated. Patient has been hospitalized before for syncope that was
suspected to be vasovagal, in 2022.
Past History
Past History
ED Past Medical History: CAD, HTN, Hypercholesterolemia and Other (Parkinsons)
ED Past Surgical History: Cholecystectomy
Social History
Tobacco: Non-smoker
Alcohol: None
Drug: None
Personal: Single
Living: with family
Employment: Retired
Review of Systems
Review of Systems
Allergies reviewed?: Yes
All Other Systems: Not applicable
Phy Exam
Physical Exam
Physical Exam:
GENERAL: Alert , in no apparent distress
EYE: pupils equal and reactive, slightly pale conjunctive
NECK: Supple
ENT: o/p clr, mmm.
CARDIAC: Regular rate and rhythm no murmur heard.
LUNGS: Clear breath sounds bilaterally, no acute respiratory distress, no wheezes/rales/rhonchi
ABDOMEN: Soft, without focal tenderness, no r/g, no cvat, normal bowel sounds
NEUROLOGICAL: Alert and oriented, no focal neuro deficits
SKIN: Warm and dry, skin intact.
MUSCULOSKELETAL: No edema, well perfused. neg kirt's sign
PSYCH: Normal and appropriate interaction.
Course
Orders/Labs/Results
Orders:
Orders
07/28/24 11:50
Electrocardiogram (*1) Urgent
Reason for Study: Chest Pain
Cardiac Monitoring- Treatment ONCE
EKG- Treatment ONCE
IV Insert/Care/Rem.- Treatment PRN
O2 Therapy [RESP] Urgent
Titrate/Wean O2 to maintain O2 sat greater than (%): 90
Special Instructions: Maintain sats >/=90%
Pulse Ox/spot Check [RESP] Urgent
Quantity: 1
Special Instructions: ON ROOM AIR
07/28/24 11:52
Complete Blood Count/With Diff Urgent
Troponin I Urgent
07/28/24 12:04
0.9% Sodium Chloride 500 ml [Nss] 500 ml IV BOLUS
07/28/24 12:35
Comprehensive Metabolic Panel Urgent
TSH Reflex To Free T4 Urgent
Comment: ADD ON
07/28/24 13:52
Orthostatic VS- Treatment ONCE
07/28/24 13:53
Add On- LAB Urgent
Tests Added?: tsh reflex t4
Abnormal Lab Results
07/28/24 07/28/24
11:52 12:35
RBC 3.95 L 10^6/uL
(4.70-6.10)
Hgb 12.8 L g/dL
(13.0-18.0)
Hct 38.2 L %
(39.0-52.0)
MCV 96.7 H fL
(80.0-94.0)
MCH 32.4 H pg
(27.0-31.0)
MPV 10.9 H fL
(7.4-10.4)
Absolute Neuts (auto) 7.9 H 10^3/uL
(1.4-6.5)
Absolute Monos (auto) 0.8 H 10^3/uL
(0.1-0.6)
Neutrophils % 75.3 H %
(42.2-75.2)
Lymphocytes % 11.2 L %
(20.5-51.1)
Carbon Dioxide 32 H mmol/L
(22-30)
Glucose 118 H mg/dl
(70-99)
Total Protein 6.2 L g/dl
(6.3-8.2)
07/28/24 11:52
07/28/24 12:35
Vital Signs
Initial and Last Documented VS:
Initial Vital Signs
Temp Pulse Resp BP Pulse Ox
36.2 C 61 15 126/70 97
07/28/24 11:51 07/28/24 11:51 07/28/24 11:51 07/28/24 11:51 07/28/24 11:51
Last Documented Vital Signs
Temp Pulse Resp BP Pulse Ox
36.2 C 60 12 122/64 98
07/28/24 11:51 07/28/24 14:00 07/28/24 14:00 07/28/24 12:20 07/28/24 14:00
MDM/Problems Addressed
Differential Diagnosis Includes:
vasovagal syncope
MDM/Problems Addressed:
84 y/o M
h/o vasovagal syncope
here after witnessed syncope event followed by brief return to near syncope a 2nd time
he had no chest pain; did have some preceeding lightheadedness
no injuries
no complaints now
on exa pt is awake, seems a little fatigued; has h/o parkinsons and was due for meds which he took (carbidopa/levodopa)
and no focal neuro findings
no obviuos murmur
bp slightly soft
sinus ekg
IVF given
orthos check
ED Attending Note
-
Portions of this chart may have been created with voice recognition software.� Occasional wrong word or��sound alike� substitutions may have occurred due to the inherent limitations of voice recognition software.
Discharge Plan
Departure
Prescriptions:
No Action
aspirin 81 MG tablet,delayed release (DR/EC)
81 mg PO NOON
metoprolol tartrate 25 MG tablet
12.5 mg PO BID
tamsulosin [Flomax] 0.4 mg Capsule
0.4 mg PO QPM
carbidopa-levodopa 25-100 mg Tablet
1.5 tab PO TID
cyanocobalamin (vitamin B-12) 100 mcg Tablet
100 mcg PO NOON
therapeutic multivitamin Tablet
1 tab PO NOON
amlodipine 2.5 mg Tablet
5 mg PO QPM
omeprazole 40 mg Capsule,Delayed Release(Dr/Ec)
40 mg PO DAILY
lisinopril 10 mg Tablet
10 mg PO BID
levothyroxine 100 mcg Tablet
100 mcg PO DAILY
calcium carbonate-vitamin D3 500 mg(1,250mg) -50 unit Capsule
1 cap PO 1XD
Interventions
Interventions:
*Risk Screen - Suicide Last Done: 07/28/24 11:51
*General Assessment Last Done: 07/28/24 11:51
*Neglect/Abuse Screening Last Done: 07/28/24 11:51
*ED- Fall Risk Assessment Last Done: 07/28/24 11:51
*ED COVID-19 Vaccine History Last Done: 07/28/24 11:51
ED- Neurological Assessment Last Done: 07/28/24 12:20
Discharge Date and Time
Print Language: PERSIAN
[2024-07-28 13:09] LABS: Troponin I < 0.012 ng/ml
[2024-07-28 14:21] LABS: ALT (SGPT) < 10 U/L (0-50); AST (SGOT) 19 U/L (17-59); Albumin 3.7 g/dl (3.5-5.0); Alkaline Phosphatase 97 U/L (38-126); Blood Urea Nitrogen 20 mg/dl (9-20); Calcium 8.4 mg/dl (8.4-10.2); Carbon Dioxide 32 mmol/L (22-30); Chloride 106 mmol/L (98-107); Estimated Creatinine Clearance 54 ml/min; Glucose 118 mg/dl (70-99); Potassium 3.7 mmol/L (3.5-5.1); Sodium 140 mmol/L (135-145); Total Bilirubin 0.3 mg/dl (0.2-1.3); Total Protein 6.2 g/dl (6.3-8.2); eGFR > 60.00
[2024-07-28 15:45] LABS: TSH Reflex To Free T4 5.15 uIU/ml (0.47-4.68)
[2024-07-28 16:15] LABS: Free T4 1.02 ng/dl (0.78-2.19)
== END 2024-07-28 15:35 | disposition home or self-care (01) ==
LOC: EMR 11:48
PROVIDERS: EMERGENCY PHYSICIAN Student in an Organized Health Care Education/Training Program; FAMILY PHYSICIAN Nurse Practitioner Family
DX: R55 Syncope and collapse (principal); G20.A1 Parkinson's disease without dyskinesia, without mention of fluctuations; I25.10 Atherosclerotic heart disease of native coronary artery without angina pectoris; I10 Essential (primary) hypertension; E78.00 Pure hypercholesterolemia, unspecified; E03.9 Hypothyroidism, unspecified; Z90.49 Acquired absence of other specified parts of digestive tract
CPT/HCPCS: 99283; 80053; 84439; 84443; 84484; 85025; 93005